=== PATIENT | male | born 1990 | race Caucasian/White ===

== ENCOUNTER 2018-05-12 18:00 | Emergency (ER) | payer MEDICAID, OTHER ==
[~2018-05-12] VITALS: Ht 170.2 cm; Wt 68.0 kg
[2018-05-12 18:20] VITALS: BP 142/97
== END 2018-05-13 00:36 | disposition home or self-care (01) ==
LOC: ER 18:00
DX: S20.212A Contusion of left front wall of thorax, initial encounter (principal); W01.0XXA Fall on same level from slipping, tripping and stumbling without subsequent striking against object, initial encounter; Y93.89 Activity, other specified; Y92.096 Garden or yard of other non-institutional residence as the place of occurrence of the external cause; Y99.8 Other external cause status
CPT/HCPCS: 71111; 93005

== ENCOUNTER 2024-04-27 18:48 | Emergency (ER) | payer MEDICAID ==
[~2024-04-27] VITALS: Ht 167.6 cm; Wt 70.6 kg
[2024-04-27 18:58] VITALS: BP 130/78; PULSE 49; RESP 17; O2SAT 96
--- NOTE | 2024-04-27 19:29 | ED.PDOC ---
History of Present Illness HPI Comments 34 y/o M presents with c/o foreign body in left-eye, today. Patient endorses on having an object in the bottom, left-corner of his sclera that can only be seen with direct light pointed at it, currently. Patient reports being unable to remove said object with saline wash at home. He denies any vision changes or loses along with any additional symptoms or relevant history. Patient denies any blood loss. Vital signs were stable. Chief Complaint: Eye Problem Time Seen by MD: 19:15 Primary Care Provider: kirstie Reviewed Notes: Nurses Notes, Medications, Allergies Allergies: Coded Allergies: NO KNOWN ALLERGIES (Unverified , 05/12/18) Information Source: Patient Mode of Arrival: Ambulatory Severity: Moderate Timing: Hours Duration: Since onset Prehospital treatment: None Past Medical History PAST MEDICAL HISTORY: Denies Surgical History: Denies all surgeries Surgical History (Other): left leg Sx Family History Family History: Unknown Social History Smoker: Non-Smoker Alcohol: Denies ETOH Use Drugs: Marijuana Lives In: Home Constitutional: denies: chills, diaphoresis, fatigue, fever, malaise, sweats, weakness, others EENTM: reports: eye pain, others (foreign body in left eye ); denies: blurred vision, double vision, ear bleeding, ear discharge, ear drainage, ear pain, ear ringing, eye redness, hearing loss, mouth pain, mouth swelling, nasal discharge, nose bleeding, nose congestion, nose pain, photophobia, tearing, throat pain, throat swelling, voice changes Respiratory: denies: cough, hemoptysis, orthopnea, SOB at rest, shortness of breath, SOB with excertion, stridor, wheezing, others Cardiovascular: denies: chest pain, dizzy spells, diaphoresis, Dyspnea on exertion, edema, irregular heart beat, left arm pain, lightheadedness, palpitations, PND, syncope, others Gastrointestinal: denies: abdomen distended, abdominal pain, blood streaked bowels, constipated, diarrhea, dysphagia, difficulty swallowing, hematemesis, melena, nausea, poor appetite, poor fluid intake, rectal bleeding, rectal pain, vomiting, others Genitourinary: denies: burning, dysuria, flank pain, frequency, hematuria, incontinence, penile discharge, penile sore, pain, testicle pain, testicle swelling, urgency, others Neurological: denies: dizziness, fainting, headache, left sided numbness, left sided weakness, numbness, paresthesia, pre-existing deficit, right sided numbness, right sided weakness, seizure, speech problems, tingling, tremors, weakness, others Musculoskeletal: denies: back pain, gout, joint pain, joint swelling, muscle pain, muscle stiffness, neck pain, others Integumetry: denies: bruises, change in color, change in hair/nails, dryness, laceration, lesions, lumps, rash, wounds, others Allergic/Immunocompromised: denies: Difficulty Healing, Frequent Infections, H laura, Itching, others Hematologic/Lymphatic: denies: anemia, blood clots, easy bleeding, easy bruising, swollen glands, others Endocrine: denies: excessive hunger, excessive sweating, excessive thirst, excessive urination, flushing, intolerance to cold, intolerance to heat, unexplained weight gain, unexplained weight loss, others Psychiatric: denies: anxiety, bipolar disorder, depression, hopeless, panic disorder, schizophrenia, sleepless, suicidal, others All Other Systems: Reviewed and Negative (negative unless otherwise stated above or in HPI) Physical Exam General Appearance: Moderate Distress (Jyim-ju-ezrlmgan distress due to left ey e foreign body concern.), Normal HEENT: Pharynx Normal, TMs Normal, Other (Tetracaine was applied to the left globe. Fluorescein stain was added. Patient revealed a small entrapped foreign body inferior and left-sided of the pupil. No Sera sign) Neck: Full Range of Motion, Non-Tender, Normal, Normal Inspection Respiratory: Chest Non-Tender, Lungs Clear, No Accessory Muscle Use, No Respiratory Distress, Normal Breath Sounds Cardiovascular: No Edema, No JVD, No Murmur, No Gallop, Normal Peripheral Pulses, Regular Rate/Rhythm Breast Exam: Deferred Gastrointestinal: No Organomegaly, Non Tender, No Pulsatile Mass, Normal Bowel Sounds, Soft Genitalia: Deferred Pelvic: Deferred Rectal: Deferred Extremities: No calf tenderness, Normal capillary refill, Normal inspection, Normal range of motion, Non-tender, No pedal edema Musculoskeletal : Apperance: Normal Neurologic: Alert, No Motor Deficits, Normal Affect, Normal Mood, No Sensory Deficits Cerebellar Function: Normal Reflexes: Normal Skin: Dry, Normal Color, Warm Lymphatic: No Adenopathy Was a procedure done? Was a procedure done?: Yes Sedation Sedation?: No Other Procedure Notes 21 gauge needle was utilized to remove the entrapped left conjunctival foreign body. Patient tolerated procedure well. Differential Dx Considerations may include: foreign body, conjunctivitis X-Ray, Labs, Meds, VS Vital Signs Date Time Temp Pulse Resp B/P (MAP) Pulse Ox O2 Delivery O2 Flow Rate FiO2 04/27/24 18:58 98.4 49 17 130/78 (95) 96 X-Ray, Labs, Meds, VS Comment Patient tolerated procedure well. Advised patient utilize antibiotic eyedrops as directed and additionally, patient needs to follow up with an seed cleaning manager tomorrow for definitive re-evaluation. Advised that he can locate one at any [facility] facility if he can not ascertain a referral through his primary care provider. Time of 1ST Reevaluation: 20:08 Reevaluation 1ST: Improved Consultation: PCP, Other (Ophthalmology) Patient Education/Counseling: Diagnosis, Treatment Family Education/Counseling: Diagnosis, Treatment, No Family Present Departure 1 Departure Time of Disposition: 20:09 Impression: Primary Impression: Eye foreign body Disposition: 01 HOME / SELF CARE / HOMELESS Condition: Stable Additional Instructions: Advised patient utilize antibiotic eyedrops and follow up with Ophthalmology tomorrow for definitive evaluation. If patient can not ascertain a referral through his primary care provider, patient should go to any [facility] facility as they have ophthalmology services available. e-Prescriptions Ibuprofen Micronized (Ibuprofen) 800 Mg Tab 800 MG PO Q8HP PRN, #15 TAB Prov: TUNDE PIÑA PAC 04/27/24 Azithromycin (Ophth) (Azasite) 1 % Madeline 2 DROP LEFTEYE BID for 5 Days, #2.5 ML 0 Refills Prov: TUNDE PIÑA PAC 04/27/24 Discharged With: Self, Friend Critical Care Note Critical Care Time?: No Stability Stability form required: No Heart Score Heart Score: Heart Score Response (Comments) Value History N/A 0 EKG N/A 0 Age N/A 0 Risk Factors N/A 0 Troponin N/A 0 Total 0 I personally scribed for TUNDE PIÑA PAC ([email or web address]) on 04/27/24 at 19:29. Electronically submitted by Oli Quintana ([email or web address]). TUNDE PIÑA PAC Apr 27, 2024 19:29
[2024-04-27] MEDS: FLUORESCEIN SOD OPTH TEST STRIP EACHEYE ONE (19:52)
[2024-04-27] MEDS ORDERED: AZIT4SOL LEFTEYE (20:11)
[2024-04-27] MEDS ORDERED: IBUP-1455 PO (20:11)
== END 2024-04-27 21:12 | disposition home or self-care (01) ==
LOC: ER 18:48
DX: T15.82XA Foreign body in other and multiple parts of external eye, left eye, initial encounter (principal); W44.8XXA Other foreign body entering into or through a natural orifice, initial encounter; Y93.89 Activity, other specified; Y92.89 Other specified places as the place of occurrence of the external cause; Y99.8 Other external cause status
CPT/HCPCS: 65220